=== PATIENT | male | born 1965 | race Caucasian/White ===

== ENCOUNTER 2017-05-19 06:27 | Day surgery (SDC) | payer BC ==
[~2017-05-19] VITALS: Ht 170.2 cm; Wt 90.4 kg
[2017-05-19 06:35] VITALS: BP 138/93
[2017-05-19] MEDS ORDERED: SODIUM CHLORIDE 0.9% 1000ML 1,000 ML IV ONE (06:44)
[2017-05-19] MEDS ORDERED: PHENYLEPHRINE HCL 10 MG/ML 1ML VIAL IV ONE (07:28)
[2017-05-19] MEDS ORDERED: SUCCINYLCHOLINE CHLORIDE 20 MG/ML 10 ML VIAL ONE (07:28)
[2017-05-19] MEDS ORDERED: GLYCOPYRROLATE 0.2 MG/ML 5 ML VIAL ONE (07:29)
[2017-05-19] MEDS ORDERED: LIDOCAINE HCL 2% 20ML ONE (07:29)
[2017-05-19] MEDS ORDERED: PROPOFOL 1000 MG/100 ML 100 ML IV ONE (07:29)
[2017-05-19 07:54] VITALS: BP 80/37
== END 2017-05-19 08:29 ==
LOC: ENDO 06:27 → DAH 06:27 → ENDO 08:29
PROVIDERS: ATTEND Internal Medicine Gastroenterology
DX: Z12.11 Encounter for screening for malignant neoplasm of colon (principal); D12.2 Benign neoplasm of ascending colon; D12.3 Benign neoplasm of transverse colon; Z83.71 Family history of colonic polyps; Z68.34 Body mass index [BMI] 34.0-34.9, adult; K21.9 Gastro-esophageal reflux disease without esophagitis; I10 Essential (primary) hypertension; G47.33 Obstructive sleep apnea (adult) (pediatric); J18.9 Pneumonia, unspecified organism; K57.30 Diverticulosis of large intestine without perforation or abscess without bleeding
CPT/HCPCS: 45380; 88305; A4606; J0330; J2370; J2704; J3490 ×2; J7030

== ENCOUNTER → 2023-07-09 | Outpatient (CLI) | payer BC ==
[~2023-07-09] MED LIST: LISI20TA24 PO; METOPROLOL PO
== END | disposition home or self-care (01) ==
LOC: SHCH 10:04
PROVIDERS: ATTEND Student in an Organized Health Care Education/Training Program
DX: I73.9 Peripheral vascular disease, unspecified (principal)
CPT/HCPCS: 93925

== ENCOUNTER → 2023-07-11 | Outpatient (CLI) | payer BC | END | disposition home or self-care (01) | LOC: SHCH 13:34 | PROVIDERS: ATTEND Student in an Organized Health Care Education/Training Program | DX: I35.1 Nonrheumatic aortic (valve) insufficiency (principal); I11.9 Hypertensive heart disease without heart failure | CPT/HCPCS: 93306 ==

== ENCOUNTER → 2023-08-04 | Outpatient (CLI) | payer BC ==
[2023-08-04 12:28] LABS: ALBUMIN 3.6 g/dL (3.5-5.0); BILIRUBIN,TOTAL 0.3 mg/dL (0.2-1.0); CREATININE 1.1 mg/dL (0.5-1.3); POTASSIUM 4.8 mmol/L (3.5-5.1); TOTAL PROTEIN, SERUM 6.8 g/dL (6.0-8.3)
== END | disposition home or self-care (01) ==
LOC: LAB 08:29
PROVIDERS: ATTEND Student in an Organized Health Care Education/Training Program
DX: I10 Essential (primary) hypertension (principal); R00.2 Palpitations
CPT/HCPCS: 36415; 80053; 80061

== ENCOUNTER → 2023-08-07 | Outpatient (CLI) | payer BC ==
[~2023-08-07] MED LIST changes: +IOHEXOL 350 MG/ML 100ML INFUS..BTL IV ONE; +METOPROLOL TARTRATE 1 MG/ML 5ML VIAL IV ONE
== END | disposition home or self-care (01) ==
LOC: RAH 09:13
PROVIDERS: ATTEND Student in an Organized Health Care Education/Training Program
DX: I25.10 Atherosclerotic heart disease of native coronary artery without angina pectoris (principal); R07.9 Chest pain, unspecified
CPT/HCPCS: 75574; J3490; Q9967

== ENCOUNTER → 2024-02-02 | Outpatient (CLI) | payer BC ==
[~2024-02-02] MED LIST changes: -IOHEXOL 350 MG/ML 100ML INFUS..BTL IV ONE; -METOPROLOL TARTRATE 1 MG/ML 5ML VIAL IV ONE
[2024-02-02 12:48] LABS: CHOLESTEROL 164 mg/dL (<200); HDL CHOLESTEROL 49 mg/dL (29-71); LDL DIRECT 107 mg/dL (0-99); TRIGLYCERIDES 34 mg/dL (30-200)
== END | disposition home or self-care (01) ==
LOC: LAB 08:58
PROVIDERS: ATTEND Student in an Organized Health Care Education/Training Program
DX: E78.5 Hyperlipidemia, unspecified (principal)
CPT/HCPCS: 36415; 80061

== ENCOUNTER 2024-12-15 08:17 | Day surgery (SDC) | payer BC ==
--- NOTE | 2024-12-13 11:46 | EKG ---
[facility] Test Date: 2024-12-13 Test Time: 11:33:24 Pat Name: LUCHO GROVE Department: [facility] Room: [facility] Gender: M Environmental Attorney: [id number] : 1965 Requested By: AMBER WALLACE Order Number: [id number] Reading MD: Judith Palacios Measurements Intervals [place] Rate: 67 P: 28 ND: 167 QRS: 54 QRSD: 91 T: 36 QT: 362 QTc: 384 Interpretive Statements Sinus rhythm Nonspecific T abnormalities, lateral leads No previous ECG available for comparison Electronically Signed On 12-15-2024 10:16:07 CDT by Judith Palacios Please click the below link to view image of tracing.
[2024-12-13 11:48] LABS: IMMATURE GRANULOCYTE ABSOLUTE 0.03 K/uL (0-1); NUCLEATED RED BLOOD CELLS 0.0 % (0.0-0.19); PLATELET COUNT (AUTO) 222 K/uL (130-400); RED BLOOD CELL COUNT(AUTO) 5.31 MIL/uL (4.50-6.20); RED CELL DISTRIBUTION WIDTH 12.3 % (11.0-15.5); WHITE BLOOD COUNT (AUTO) 9.5 K/uL (4.8-10.8)
[2024-12-13 11:52] LABS: APPEARANCE,URINE CLEAR (CLEAR); GLUCOSE, URINE (UA) NEGATIVE (NEGATIVE); LEUKOCYTE ESTERASE ,URINE NEGATIVE Leu/uL (NEGATIVE); NITRATE,URINE NEGATIVE (NEGATIVE); OCCULT BLOOD,URINE NEGATIVE (NEGATIVE)
[2024-12-13 11:55] LABS: ADD UA MICROSCOPIC NO
[2024-12-13 11:58] LABS: INR 1.02 (0.85-1.15)
[2024-12-13 12:00] LABS: CREATININE 1.2 mg/dL (0.5-1.3); GLOMERULAR FILTR. RATE CALC 71.0 mL/min (>90); GLUCOSE,RANDOM 105.0 mg/dL (70-105); SODIUM SERUM 140.0 mmol/L (136-145); UREA NITROGEN, BLOOD 18.0 mg/dL (7-18)
[2024-12-13 12:15] VITALS: BP 102/60; PULSE 71; RESP 17; TEMP 98.4
--- NOTE | 2024-12-13 17:04 | NUR ---
report reported potassium level to dr rebekah oliveira. ok to proceed
[~2024-12-15] VITALS: Ht 170.2 cm; Wt 98.6 kg
[2024-12-15] VITALS (9 sets, daily range): BP systolic 91–113; BP diastolic 59–78; PULSE 60–82; RESP 13–17; TEMP 97.2–98.8
[~2024-12-15 08:17] MED LIST changes: +CETI10TA57 PO; +MAGNESIUM GLYCINATE PO; +METO-409 PO; -METOPROLOL PO; +MONT-39 PO; +NITR0.4T50 SL; +OMEG1CAP83 PO; +PRAS25CA10 PO; +VITAMIN D PO; +[UNRECOGNIZED DRUG - OTHER] PO; +[UNRECOGNIZED DRUG - OTHER] PO
[2024-12-15] MEDS ORDERED: IOHEXOL 350 MG/ML 100ML INFUS..BTL IV ONE (10:24)
[2024-12-15] MEDS ORDERED: LIDOCAINE HCL 400MG/20ML VIAL ONE (10:24)
[2024-12-15] MEDS ORDERED: VERAPAMIL HCL 2.5 MG/ML VIAL ONE (10:24)
[2024-12-15] MEDS ORDERED: HEParin-NS 1,000 UNIT/500 ML 1,000 ML IV ONE (10:25)
[2024-12-15] MEDS ORDERED: NITROGLYCERIN 50MG VIAL ONE (10:25)
[2024-12-15] MEDS ORDERED: MIDAZOLAM HCL 1 MG/ML 2ML VIAL ONE ×2 (10:35→10:56)
--- NOTE | 2024-12-15 11:37 | PRN ---
PROCEDURE REPORT DATE OF PROCEDURE: Dec 15, 2024 SALES PROMOTION COORDINATOR: [Matias Melton MD ] PROCEDURE PERFORMED: Conscious sedation Ultrasound guided right radial artery access Selective left coronary artery angiogram Selective right coronary artery angiogram Left heart catheterization TR band 13 kim over right radial artery INDICATION: Abnormal CCTA DESCRIPTION OF PROCEDURE: After informed consent was obtained, the patient was prepped and draped in the usual sterile fashion. A 6 [place] arterial sheath was inserted in the right radial artery using ultrasound guidance with first pass wall puncture. The arterial sheath was aspirated and flushed. A 6 [place] JL 3 was then advanced to the ascending aorta over an exchange length J-tip guidewire, was aspirated and flushed, and was used for selective coronary angiograms in multiple obliquities. A JR-4 was advanced in a similar fashion to the ascending aorta over the J- tipped guidewire and was used for selective right coronary angiograms in multiple oblique views with findings as outlined below. The JR-4 catheter advanced into the LV and pressures were obtained with a pull-back across the aortic valve. A TR band was placed over right radial artery. FLUOROSCOPY TIME: 11.3 min LEFT HEART HEMODYNAMICS: LVEDP 10 mm Hg and no gradient Ao CORONARY ANGIOGRAM: LEFT MAIN: Patent and 0% stenosis. Gives rise to LCx and LAD. LEFT ANTERIOR DESCENDING: Large vessel giving rise to two Diagonal branches. There is 20-30% mid LAD stenosis just after the first septal artery with SHANT 3 flow. LEFT CIRCUMFLEX: Large, codominant and gives rise to two OM branches. 0% stenosis. RIGHT CORONARY ARTERY: Large, codominant vessel 0% stenosis. HEMOSTASIS: TR band 12 kim over right radial artery INTERVENTIONS: None. COMPLICATIONS: None FINDINGS: Normal coronary anatomy and mild non-obstructive CAD. ESTIMATED BLOOD LOSS: 5 cc RECOMMENDATIONS/INSTRUCTIONS: Aggressive risk factor modification. CONTRAST DELIVERED TO PATIENT (mL): 55cc MD RODRIGO Whitehead JAMES R MD Dec 15, 2024 11:37
[2024-12-15] MEDS ORDERED: GLUCAGON 1MG KIT 1 MG ML IM PRN (12:00)
[2024-12-15] MEDS ORDERED: DEXTROSE 50%-WATER 50 ML DISP.SYRIN IV PRN (12:00)
[2024-12-15] MEDS: 0.9%NACL 1000ML 1,000 ML IV SCH (12:58)
--- NOTE | 2024-12-15 14:13 | NUR ---
VASBAND REMOVED DRESSED WITH 2X2 GAUZE AND TEGADERM, RIGHT WRIST WRAPPED WITH COBAND. RIGHT WRIST ASYMPTOMATIC VERBAL INSTRUCTIONS ON WRIST CARE GIVEN TO BOTH PT AND SPOUSE AT BEDSIDE. VSS NAD
--- NOTE | 2024-12-15 14:24 | NUR ---
REPORT GIVEN TO INDY BREEN
--- NOTE | 2024-12-15 15:52 | NUR ---
Right Radial site without sign of bleeding bruising or hematoma. Dressing remains clean and dry. Radial pulses intact to bue's. Patient and Family instructed on importance of keeping right wrist straight and POC after discharge. All questions answered. PIV removed with catheter tip intact. W/C to POV with .
== END 2024-12-15 16:00 | disposition home or self-care (01) ==
LOC: DAH 08:17
PROVIDERS: ATTEND Student in an Organized Health Care Education/Training Program
DX: R07.9 Chest pain, unspecified (principal); I25.10 Atherosclerotic heart disease of native coronary artery without angina pectoris; R94.39 Abnormal result of other cardiovascular function study; I47.10 Supraventricular tachycardia, unspecified; E78.5 Hyperlipidemia, unspecified; R00.2 Palpitations; I73.9 Peripheral vascular disease, unspecified; I11.9 Hypertensive heart disease without heart failure; R42 Dizziness and giddiness; Z95.0 Presence of cardiac pacemaker; Z79.899 Other long term (current) drug therapy
CPT/HCPCS: 80048; 83880; 85025; 85610; 85730; 81003; 36415; 93005; 93458; 99156; 99157 ×2; C1769 ×2; C1887; C1894; A4649; J3010; J3490 ×3; J1644 ×2; J2250 ×2; Q9967; A4215; A6251; A4222; A4221; A4663; A4216; A6206; A4606; A4223 ×3; 96360; 96361